=== PATIENT | male | born 1945 | race Caucasian/White ===

== ENCOUNTER 2020-12-30 19:53 | Inpatient (IN) ==
[2020-12-30] MEDS ORDERED: Piperacillin/Tazobactam 3.375 GM in Water for inj. (sterile) 20 ML IVP ONE (21:03)
[2020-12-30] MEDS ORDERED: Isovue-370 500 ML BOTTLE IVP ONE (21:03)
[2020-12-30] MEDS ORDERED: 0.9 % Sodium Chloride 500 ML IVC ONE (21:07)
[2020-12-30] MEDS ORDERED: Vancomycin 1,500 MG/265 ML IV.SOLN IVPB ONE (21:08)
[2020-12-30 22:03] LABS: VBG Ionized Calcium 1.16 mmol/L (1.15-1.35)
[2020-12-30 22:03] LABS: Basophils % 0.2 %; Hematocrit 30.2 % (37.5-50.1); Hemoglobin 9.6 g/dL (12.9-16.9); Immature Granulocytes % 7.4 % (0-4); Lymphocytes # 2.5 K/mcL (0.6-4.6); Lymphocytes % 22.8 %; Mean Corpuscular HGB Conc 31.8 g/dL (31.6-35.5); Mean Corpuscular Hemoglobin 28.7 pg (28.0-33.3); Mean Corpuscular Volume 90.4 fL (83.0-100.0); Mean Platelet Volume 10.1 fL (9.4-12.4); Monocytes # 0.3 K/mcL (0.0-1.3); Monocytes % 2.3 %; Neutrophils # 7.5 K/mcL (1.6-8.9); Platelet Count 151 K/mcL (140-400); Red Blood Count 3.34 M/mcL (4.19-5.50); Segmented Neutrophils % 67.3 %; White Blood Count 11.1 K/mcL (4.3-11.1)
[2020-12-30 22:10] LABS: INR 1.3; Prothrombin Time 15.4 Seconds (9.4-12.1)
[2020-12-30 22:28] LABS: Alanine Aminotransferase 28 Units/L (7-52); Albumin 3.2 g/dL (3.5-5.7); Albumin/Globulin Ratio 1.1 (1.1-2.2); Alkaline Phosphatase 74 Units/L (34-104); Aspartate Amino Transferase 29 Units/L (13-39); BUN/Creatinine Ratio 15 (6-26); Bilirubin,Direct 0.5 mg/dL (0.0-0.2); Bilirubin,Indirect 0.7 mg/dL (0.0-1.0); Bilirubin,Total 1.2 mg/dL (0.3-1.0); Blood Urea Nitrogen 19 mg/dL (8-23); Calcium 8.5 mg/dL (8.6-10.3); Carbon Dioxide 20 mEq/L (23-29); Chloride 104 mEq/L (98-107); Creatine Kinase 302 Units/L (30-223); Globulin 2.8 g/dL (2.4-3.5); Glucose 106 mg/dL (70-105); Lipase 4 Units/L (11-82); Magnesium 1.9 mg/dL (1.6-2.6); Osmolality,Calculated 279 (280-300); Potassium 3.9 mEq/L (3.5-5.1); Sodium 133 mEq/L (136-145); Troponin I 1.59 ng/mL (< 0.04); eGFR For African Americans > 60 (> 60); eGFR For Non-African Americans 58 (> 60)
[2020-12-30 23:04] LABS: Anisocytosis 1+ (Not Present); Hypochromasia Present (Not Present); Platelet Estimate Normal (Normal); Reactive Lymphocytes Present (Not Present)
[2020-12-30 23:53] LABS: Amorphous Sediment,Urine Few per hpf (None-Few); Bacteria,Urine Few per hpf (None-Few); Bilirubin,Urine Negative (Negative); Blood,Urine Small (Negative); Clarity,Urine Turbid (Clear); Color,Urine Light-Orange (Yellow); Glucose,Urine (UA) Normal (Normal); Ketones,Urine Negative (Negative); Leukocyte Esterase,Urine Negative (Negative); Mucus,Urine Few per lpf (None-Few); Nitrite,Urine Negative (Negative); Protein,Urine 70 mg/dL (Neg-Trace); RBC,Urine 0-3 per hpf (0-3); Specific Gravity,Urine 1.022 (1.010-1.025); Squamous Epithelial Cell,Urine Few per hpf (None-Few); Urobilinogen,Urine Normal (Normal)
[2020-12-31] MEDS ORDERED: 0.9 % Sodium Chloride 1,000 ML IVC ONE (00:13)
[2020-12-31] MEDS ORDERED: Aspirin 81 MG TAB.CHEW PO ONE (00:15)
[2020-12-31 00:46] LABS: Thyroid Stimulating Hormone 0.962 mcIU/mL (0.340-5.600)
[2020-12-31] MEDS ORDERED: *HR* Heparin 5,000 UNIT/ML VIAL IVP ONE (04:21)
[2020-12-31] MEDS ORDERED: *HR* Heparin 5,000 UNIT/ML VIAL IVP PRN (04:21)
[2020-12-31] MEDS: 0.9 % Sodium Chloride 1,000 ML IVC SCH ×4 (04:41→11:40)
[2020-12-31] MEDS: Heparin 25,000UNIT/250ML 1/2NS 25,000 UNIT/250 ML IV.SOLN IVC SCH (04:41)
[2020-12-31 04:52] LABS: Troponin I 3.29 ng/mL (< 0.04)
[2020-12-31] MEDS ORDERED: Perflutren Lipid Microsphere 1.3 ML in 0.9 % Sodium Chloride 8.7 ML IVP PRN (05:43)
[2020-12-31] MEDS ORDERED: Naloxone 0.4 MG/ML INJ IVP PRN (05:49)
[2020-12-31] MEDS ORDERED: *HR* Promethazine 25 MG/ML VIAL IM PRN (05:49)
[2020-12-31] MEDS ORDERED: Ondansetron 4 MG/2 ML VIAL IVP PRN (05:49)
[2020-12-31 06:52] LABS: Chol/HDL Ratio 5.8 (0-4.9)
[2020-12-31] MEDS: allopurinoL 100 MG TABLET PO SCH (08:28)
[2020-12-31] MEDS: Cefepime HCl 1,000 MG in 0.9 % Sodium Chloride Mini Bag 100 ML IVPB SCH ×3 (08:28→23:56)
[2020-12-31] MEDS: Aspirin 81 MG TAB.CHEW PO SCH (08:28)
[2020-12-31] MEDS: *HR* Heparin 5,000 UNIT/ML VIAL IVP PRN ×2 (11:40→17:46)
[2020-12-31] MEDS ORDERED: Gadolinium Contrast Agent (WT Based) IV PRN (14:54)
[2020-12-31] MEDS: Mirtazapine 15 MG TABLET PO SCH (20:00)
[2020-12-31] MEDS: Latanoprost 2.5 ML BOTTLE BOTH EYES SCH (21:37)
[2021-01-01 00:32] LABS: Hematocrit 25.4 % (37.5-50.1); Hemoglobin 8.3 g/dL (12.9-16.9); Mean Corpuscular HGB Conc 32.7 g/dL (31.6-35.5); Mean Corpuscular Hemoglobin 29.6 pg (28.0-33.3); Mean Corpuscular Volume 90.7 fL (83.0-100.0); Mean Platelet Volume 9.4 fL (9.4-12.4); Platelet Count 106 K/mcL (140-400); Red Cell Distribution Width 18.1 % (11.5-14.5); White Blood Count 7.9 K/mcL (4.3-11.1)
[2021-01-01 00:50] LABS: BUN/Creatinine Ratio 16 (6-26); Blood Urea Nitrogen 16 mg/dL (8-23); Calcium 7.6 mg/dL (8.6-10.3); Carbon Dioxide 19 mEq/L (23-29); Chloride 110 mEq/L (98-107); Glucose 106 mg/dL (70-105); Osmolality,Calculated 282 (280-300); Potassium 3.5 mEq/L (3.5-5.1); Sodium 135 mEq/L (136-145); eGFR For African Americans > 60 (> 60); eGFR For Non-African Americans > 60 (> 60)
[2021-01-01] MEDS: *HR* Heparin 5,000 UNIT/ML VIAL IVP PRN (01:02)
[2021-01-01] MEDS: Heparin 25,000UNIT/250ML 1/2NS 25,000 UNIT/250 ML IV.SOLN IVC SCH (01:03)
[2021-01-01] MEDS: Cefepime HCl 1,000 MG in 0.9 % Sodium Chloride Mini Bag 100 ML IVPB SCH ×3 (08:04→23:53)
[2021-01-01] MEDS: allopurinoL 100 MG TABLET PO SCH (08:05)
[2021-01-01] MEDS: Aspirin 81 MG TAB.CHEW PO SCH (08:05)
[2021-01-01] MEDS ORDERED: Aspirin 81 MG TAB.CHEW PO SCH (09:00)
[2021-01-01] MEDS ORDERED: Isovue-370 500 ML BOTTLE IVP ONE (10:27)
[2021-01-01] MEDS ORDERED: 0.9 % Sodium Chloride 1,000 ML IVC SCH (10:30)
[2021-01-01] MEDS ORDERED: Acetaminophen 325 MG TABLET PO PRN (17:04)
[2021-01-01] MEDS: Ipratropium/Albuterol Neb 3 ML IH PRN (17:22)
[2021-01-01] MEDS: Latanoprost 2.5 ML BOTTLE BOTH EYES SCH (20:04)
[2021-01-01] MEDS: Mirtazapine 15 MG TABLET PO SCH (20:17)
[2021-01-02] MEDS: *HR* Heparin 5,000 UNIT/ML VIAL SQ SCH ×3 (05:52→21:46)
[2021-01-02] MEDS ORDERED: Furosemide 20 MG/2 ML VIAL IVP ONE (07:18)
[2021-01-02 07:47] LABS: Basophils % 0.3 %; Mean Corpuscular HGB Conc 32.2 g/dL (31.6-35.5); Mean Platelet Volume 9.6 fL (9.4-12.4)
[2021-01-02 07:49] LABS: Eosinophils % 0.4 %; Hematocrit 26.4 % (37.5-50.1); Hemoglobin 8.5 g/dL (12.9-16.9); Immature Platelets 1.4 % (1.1-6.1); Lymphocytes # 3.4 K/mcL (0.6-4.6); Lymphocytes % 35.5 %; Mean Corpuscular Hemoglobin 29.3 pg (28.0-33.3); Monocytes # 0.3 K/mcL (0.0-1.3); Monocytes % 2.9 %; Neutrophils # 5.8 K/mcL (1.6-8.9); Nucleated Red Blood Cells 0.2 /100 WBC (0); Red Cell Distribution Width 18.1 % (11.5-14.5); Segmented Neutrophils % 59.9 %; White Blood Count 9.6 K/mcL (4.3-11.1)
[2021-01-02 07:57] LABS: Platelet Count 90 K/mcL (140-400)
[2021-01-02 08:06] LABS: % Iron Saturation 16 % (20-55); BUN/Creatinine Ratio 13 (6-26); Blood Urea Nitrogen 12 mg/dL (8-23); Calcium 7.9 mg/dL (8.6-10.3); Carbon Dioxide 20 mEq/L (23-29); Chloride 111 mEq/L (98-107); Glucose 120 mg/dL (70-105); Iron 30 mcg/dL (65-175); Magnesium 2.1 mg/dL (1.6-2.6); Osmolality,Calculated 287 (280-300); Phosphorous 1.4 mg/dL (2.7-4.5); Potassium 3.4 mEq/L (3.5-5.1); Sodium 138 mEq/L (136-145); Transferrin 130 mg/dL (203-362); eGFR For African Americans > 60 (> 60); eGFR For Non-African Americans > 60 (> 60)
[2021-01-02] MEDS: allopurinoL 100 MG TABLET PO SCH (08:15)
[2021-01-02] MEDS: Aspirin 81 MG TAB.CHEW PO SCH (08:15)
[2021-01-02] MEDS: Cefepime HCl 1,000 MG in 0.9 % Sodium Chloride Mini Bag 100 ML IVPB SCH (08:15)
[2021-01-02 08:18] LABS: Ferritin 1357 ng/mL (20-250)
[2021-01-02 08:21] LABS: Platelet Estimate Decreased (Normal)
[2021-01-02 08:35] LABS: Folate 6.2 ng/mL (3.0-16.0)
[2021-01-02] MEDS ORDERED: Iron Sucrose Complex 400 MG in 0.9 % Sodium Chloride 250 ML IVPB ONE (09:35)
[2021-01-02] MEDS ORDERED: Cyanocobalamin (B-12) 1,000 MCG/ML VIAL SQ ONE (09:35)
[2021-01-02] MEDS: Ipratropium/Albuterol Neb 3 ML IH PRN (10:05)
[2021-01-02] MEDS: Mirtazapine 15 MG TABLET PO SCH (21:46)
[2021-01-02] MEDS: Latanoprost 2.5 ML BOTTLE BOTH EYES SCH (21:47)
[2021-01-03] MEDS: *HR* Heparin 5,000 UNIT/ML VIAL SQ SCH (06:16)
[2021-01-03] MEDS: allopurinoL 100 MG TABLET PO SCH (08:14)
[2021-01-03] MEDS: Aspirin 81 MG TAB.CHEW PO SCH (08:15)
[2021-01-03 12:13] VITALS: BP 135/74
== END 2021-01-03 12:28 | disposition home health service (06) | DRG 871 ==
LOC: 2ANU 19:53 → EMEROOARM 19:53 → SUATTDRO 12-31 04:58 → 2ANU 12-31 05:32
PROVIDERS: ADMIT Internal Medicine; ATTEND Internal Medicine